=== PATIENT | female | born 1985 | race Caucasian/White ===

== ENCOUNTER 2018-04-11 16:37 | Emergency (ER) | payer MEDICAID ==
[~2018-04-11] VITALS: Ht 160 cm; Wt 121.0 kg
[2018-04-11 16:40] VITALS: BP 98/67
== END 2018-04-11 17:46 | disposition home or self-care (01) ==
LOC: ER 16:38
DX: M25.532 Pain in left wrist (principal); W19.XXXA Unspecified fall, initial encounter; Y93.89 Activity, other specified; Y92.89 Other specified places as the place of occurrence of the external cause; Y99.8 Other external cause status
CPT/HCPCS: 29125; 73110; 99284